=== PATIENT | female | born 1935 | race Caucasian/White ===

== ENCOUNTER 2020-10-31 13:37 | Inpatient (IN) ==
[2020-10-31] MEDS ORDERED: morphine 4 MG/ML VIAL IM ONE (13:45)
--- NOTE | 2020-10-31 13:50 | Emergency Department Note ---
Fall HPI General Chief Complaint: Fall Stated Complaint: fall Time Seen by Provider: 10/31/20 13:48 Source: EMS Mode of arrival: ambulatory Limitations: no limitations History of Present Illness HPI Narrative: Rosalind is an 89 year old female who arrives to the ER by EMS due to a reported fall yesterday with right hip pain. The grandson and son are in the room providing history as the patient suffers from dementia. She is alert and able to answer some questions but based on her baseline mentation is not able to provide reliable history. The grandson states that he discovered the patient down on the ground but conscious after a fall. He is not aware if she hit her head or lost consciousness. The patient is not on a blood thinner. She is complaining of right sided hip pain with guarding on exam. The grandson s tates that after her fall yesterday she was able to get up and ambulate with assistance but continues to complain of right hip pain today. They are concerned for a fracture. The patient is not in distress in the room and does not appear to be suffering from acute back pain. There are no reports of incontinence in the home and the patient does respond to stimuli when testing sensation of the lower extremities. No other modifying factors. Related Data Home Medications Medication Instructions Recorded Confirmed levothyroxine 10/31/20 Previous Rx's Medication Instructions Recorded levothyroxine 25 mcg tablet 25 mcg PO QDAY #90 tab 03/16/17 venlafaxine 75 mg tablet 75 mg PO QDAY #90 tab 10/27/19 Allergies Allergy/AdvReac Type Severity Reaction Status Date / Time Penicillins Allergy Unknown Unknown Unverified 10/31/20 14:11 Review of Systems ROS ROS Narrative: Narrative: All systems ED: reviewed and negative except as stated. 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, lower leg (Chronic) Memory loss (Chronic 12/19/12) Hernia, hiatal (Chronic) Hemorrhoids (Chronic) Heart murmur (Chronic) Hearing loss (Chronic) Gait abnormality (Chronic 12/19/12) Edema (Chronic) Diverticulosis (Chronic 12/04/99) Depression (Chronic) Dementia, 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 Follow CBC. Anxiety Daytime sleepiness Dementia Dementia, senile (12/19/12) Depression Severe depression. Hospital Admit 03/2008, [facility], for recurrent severe depressive disorder with ECT there. Some memory loss--head MRI 12/22/08. Follow up 04/16 and 03/16 Dr. Kamara, [facility]. Diverticulosis (12/04/99) Diverticulosis with colonoscopy performed 12/04/[address] Meade. Hemorrhoids, prominent anal papillae; otherwise normal. 10-year sequence. Edema Encounter for removal of sutures Gait abnormality (12/19/12) Hearing loss Heart murmur Very distant past history of heart murmur. Follow EKGs. Hemorrhoids 12/04/1999--Colonoscopy--Dr. Meade--Hemorrhoids, prominent anal papillae; otherwise normal. 10-year sequence Hepatitis A infection Distant past H/O Hepatitis-A in childhood, age 14. Hernia, hiatal /O hiatal hernia, asymptomatic. 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 Renner records) Total abdominal hysterectomy & bilateral salpingo-oophorectomy for excessive bleeding. Breast exam has been stable--follow mammograms. Weakness of extremity Knee Wellness examination Surgical History (System 10/31/20 @ 14:11 by Ivan Johnson) H/O colonoscopy (12/04/99) 12/04/1999 Dr. Meade--Hemorrhoids, prominent anal papillae; otherwise normal. 10-year sequence. H/O local excision of skin lesion Melanoma H/O: hysterectomy 1985 (Per Dr. Renner records) Total abdominal hysterectomy & bilateral salpingo-oophorectomy for excessive bleeding. Family History (System 10/31/20 @ 14:11 by Ivan Johnson) Mother Lung cancer Smoker Sister Dementia Brother Drug abuse Unknown Hypertension, essential Father Stroke Social History Smoking Status: Never smoker Exam Narrative Narrative: Narrative: General Limitations: no limitations General appearance: Present alert Head Head: Present atraumatic, normocephalic and normal inspection Eye Eye: Present normal appearance, PERRL and EOMI ENT ENT: Present normal exam, normal oropharynx and mucous membranes moist Neck Neck: Present normal inspection, full ROM, trachea midline and other (No midline tenderness.) Chest Chest: Present normal inspection and symmetric chest wall rise Respiratory Respiratory: Present normal lung sounds bilaterally Cardiovascular Cardiovascular: Present regular rate and normal rhythm Adbominal Abdominal: Present soft Extremities Extremities: Present normal inspection, full ROM and normal capillary refill Back Back: Present normal inspection Neurological Neurological: Present alert Psychiatric Psychiatric: Present normal affect and normal mood Skin Skin: Present warm (WNL), dry and normal color Other Other information: No signs of external trauma in the hips or lower extremities bilaterally. No evidence of shortening or fixed rotation. Patient does have pain when internally rotating the right lower extremity. No long bone deformities noted on exam. No swelling, bruising, erythema, or crepitus of the lower extremities bilaterally. Course Course Course Narrative: 1357: IM morphine for pain. Plain films of the hips have been ordered for evaluation of acute fracture. CT scan of the head and neck to evaluate for cervical spine injury or intracranial injury. 1445: IV placed. Review of the patient's plain films of her hips show evidence of a fracture through the right femoral neck. Patient is still being evaluated in CT but when she comes back we will inform the family and will talk to Dr. Waldrop with orthopedics for consultation. 1614: Patient was discussed with Dr. Avila who has accepted the patient with Dr. Waldrop on as consult. Pre op labs have been ordered. Patient to be kept NPO by midnight. Plan is to have the patient in the hospital and then surgical fixation of the hip performed tomorrow morning. Patient discussed with Dr. Bassett. EKG on my read shows sinus rhythm with rate of 53 beats per minute, no ST changes, no hyperacute T wave, left axis deviation with no evidence of WPW/Brugada/Heart Block. Vital Signs Vital signs: Vital Signs Temperature 98.1 F 10/31/20 13:38 Pulse Rate 56 L 10/31/20 13:38 Respiratory Rate 16 10/31/20 13:38 Blood Pressure 143/78 10/31/20 13:38 Pulse Oximetry (%) 93 10/31/20 13:38 Temperature 98.1 F 10/31/20 13:38 Pulse Rate 54 L 10/31/20 15:01 Respiratory Rate 16 10/31/20 13:38 Blood Pressure 131/59 10/31/20 15:01 Pulse Oximetry (%) 92 10/31/20 15:01 [facility] Narrative Medical decision making narrative: 85 year old female with history of ground level fall 24 hours ago presented to the ER with complaints of right hip pain. Plain films revealed a fracture of the right femoral neck with significant displacement. Patient given morphine for pain. IV placed for continued pain management. Patient admitted to the hospitalist service with orthopaedics on as consult. Plan for surgical fixation of the patients hip tomorrow morning. Patient discussed with Dr. Bassett. Assessment: Closed right hip fracture. Treatment: Patient given morphine in the ER for pain. Patient admitted to the hospitalist with ortho consult for surgical repair of hip tomorrow. Discharge Plan Patient/Caregiver Discharge Instructions Pt seen by RAIL CAR REPAIRMAN/PA only: Yes Clinical Impression: Closed fracture of right hip requiring operative repair Qualifiers: Encounter type: initial encounter Qualified Code(s): S72.001A - Fracture of unspecified part of neck of right femur, initial encounter for closed fracture Activity: increase activity as tolerated Patient Disposition: Xfer As Inpt (TS) Condition: Good Follow up with: Rochelle Leiva DO [Primary Care Provider] - Prescriptions: No Action levothyroxine 25 mcg tablet 25 mcg PO QDAY Qty: 90 RF: 3 venlafaxine 75 mg tablet 75 mg PO QDAY Qty: 90 RF: 0 levothyroxine RF: 0
--- NOTE | 2020-10-31 15:10 | XRay Report ---
CLINICAL INFORMATION: Hip Fx COMPARISON: None. FINDINGS: Heart is moderately enlarged. Mediastinum and pulmonary vessels are normal. There is minor bibasilar atelectasis. No infiltrates or effusions. IMPRESSION: Moderate cardiomegaly but no evidence of CHF. Minor bibasilar atelectasis Interpreted and Authenticated by: Robin Lua 10/31/20
--- NOTE | 2020-10-31 16:44 | Internal Med History&Physical ---
HPI History of Present Illness Patient information: Note initiated : 10/31/20 at 4:39 pm Service Date, if different from initiated Date: [] Patient: Aranza Ku a 85 y/o F admitted on for fall. Chief Complaint: [Fall with right hip fracture] History of present illness: Ms. Ku is a 85 year old F history of advanced dementia, hypothyroidism, presenting with fall with right hip fractures. There was no prior similar episode. The following HPI is limited by patient's current mental status. Patient has a weakness ground-level fall at home yesterday. Patient was being brought by family via EMS to our ER for further evaluation and treatment today. X-ray of the hip showing right hip fractures. Orthopedic surgeon was consulted who planted to be found ORIF on 11/01/20. 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) Primary localized osteoarthrosis, lower leg (Chronic) Memory loss (Chronic 12/19/12) Hernia, hiatal (Chronic) Hemorrhoids (Chronic) Heart murmur (Chronic) Hearing loss (Chronic) Gait abnormality (Chronic 12/19/12) Edema (Chronic) Diverticulosis (Chronic 12/04/99) Depression (Chronic) Dementia, 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 Follow CBC. Anxiety Daytime sleepiness Dementia Dementia, senile (12/19/12) Depression Severe depression. Hospital Admit 03/2008, [facility], for recurrent severe depressive disorder with ECT there. Some memory loss--head MRI 12/22/08. Follow up 04/16 and 03/16 Dr. Kamara, [facility]. Diverticulosis (12/04/99) Diverticulosis with colonoscopy performed 12/04/[address] Meade. Hemorrhoids, prominent anal papillae; otherwise normal. 10-year sequence. Edema Encounter for removal of sutures Gait abnormality (12/19/12) Hearing loss Heart murmur Very distant past history of heart murmur. Follow EKGs. Hemorrhoids 12/04/1999--Colonoscopy--Dr. Meade--Hemorrhoids, prominent anal papillae; otherwise normal. 10-year sequence Hepatitis A infection Distant past H/O Hepatitis-A in childhood, age 14. Hernia, hiatal /O hiatal hernia, asymptomatic. History of tobacco abuse Hypersomnia, organic (01/22/12) Hypothyroidism Incontinent of urine Medical non-compliance (01/22/12) she is given a written list of her meds today Medicare annual wellness visit, subsequent Melanoma Memory loss (12/19/12) Osteoporosis (07/02/12) Primary localized osteoarthrosis, lower leg Psychosocial stressors Severe episode of recurrent major depressive disorder, without psychotic features Vaginal bleeding (~1985) 1985 (Per Dr. Renner records) Total abdominal hysterectomy & bilateral salpingo-oophorectomy for excessive bleeding. Breast exam has been stable--follow mammograms. Weakness of extremity Knee Wellness examination Surgical History (System 10/31/20 @ 14:11 by Ivan Johnson) H/O colonoscopy (12/04/99) 12/04/1999 Dr. Meade--Hemorrhoids, prominent anal papillae; otherwise normal. 10-year sequence. H/O local excision of skin lesion Melanoma H/O: hysterectomy 1985 (Per Dr. Renner records) Total abdominal hysterectomy & bilateral salpingo-oophorectomy for excessive bleeding. Family History (System 10/31/20 @ 14:11 by Ivan Johnson) Mother Lung cancer Smoker Sister Dementia Brother Drug abuse Unknown Hypertension, essential Father Stroke Social History (System 10/31/20 @ 14:11 by Ivan Johnson) marital status: occupation: clinical nursing instructor other: Children-2 alcohol intake frequency: does not drink substance use type: does not use MEDS/ALLERGIES Home Medications and Allergies Home Medications Medication Instructions Recorded Confirmed Type levothyroxine 25 mcg tablet 25 mcg PO QDAY #90 tab 03/16/17 05/16/20 Rx venlafaxine 75 mg tablet 75 mg PO QDAY #90 tab 10/27/19 05/16/20 Rx levothyroxine 10/31/20 History Allergies Allergy/AdvReac Type Severity Reaction Status Date / Time Penicillins Allergy Unknown Unknown Unverified 10/31/20 14:11 EXAM Constitutional Vitals: Temp Pulse Resp BP Pulse Ox 36.7 C 54 L 16 138/66 100 10/31/20 13:38 10/31/20 16:32 10/31/20 13:38 10/31/20 16:32 10/31/20 16:32 General appearance: no acute distress; no cooperative Exam: nonverbal Head Head exam: Present atraumatic and normocephalic Eye Eye exam: Present EOMI and PERRL ENT ENT exam: Present mucous membranes moist, normal exam and normal external ear exam Additional comments: Nasal cannula in place Neck Neck exam: Present normal inspection; Absent lymphadenopathy, tenderness and thyromegaly Respiratory Respiratory exam: Absent accessory muscle use, respiratory distress and wheezes Cardiovascular Cardiovascular exam: Present normal rate and rhythm; Absent JVD GI/Abdominal GI/Abdominal exam: Present normal bowel sounds and soft; Absent organomegaly and tenderness Extremities Exam Extremities exam: Present full ROM, normal capillary refill, normal inspection and tenderness (right thigh) Neurological Exam Neurological exam: Present alert, CN II-XII intact and oriented X3; Absent motor sensory deficit Psychiatric Psychiatric exam: Present normal affect and normal mood; Absent anxious and depressed Skin Skin exam: Present dry and intact DATA Data Completed and Pending Labs: Labs from last 24 hours 10/31/20 10/31/20 10/31/20 16:14 16:14 16:14 WBC Pending RBC Pending Hgb Pending Hct Pending MCV Pending MCH Pending MCHC Pending RDW Pending Plt Count Pending MPV Pending Neut % (Auto) Pending PT Pending INR Pending APTT Pending Sodium Pending Potassium Pending Chloride Pending Carbon Dioxide Pending Anion Gap Pending BUN Pending Creatinine Pending GFR Calculation Pending Glucose Pending Calcium Pending Total Bilirubin Pending AST Pending ALT Pending Alkaline Phosphatase Pending Total Protein Pending Albumin Pending Globulin Pending Albumin/Globulin Ratio Pending A/P Assessment and plan (1) Hypothyroidism: Status: Acute (2) Closed fracture of right hip requiring operative repair: Status: Acute Qualifiers: Encounter type: initial encounter Qualified Code(s): S72.001A - Fracture of unspecified part of neck of right femur, initial encounter for closed fracture (3) Dementia: Status: Chronic Narrative A/P Narrative: Assessment and Plans: 1. Right hip closed fracture: Admit to inpatient med surg Orthopedic surgeon consulted for planned ORIF on 11/01/20 NPO after midnight in preparation of the surgery Bed rest PT OT after surgery 2. Hypothyroidism: Continue thyroid replacement therapy 3. Advanced dementia: Continue to monitor GI ppx: not currently indicated DVT ppx: SCDs Code status: Full Prognosis: Stable Disposition: inpatient med surg Time Spent With Patient Time: Total time spent is greater than 50% in coordination of care (as documented) at patient's floor/unit and/or counseling patient: Total time spent with greater than 50% in coordination of care (as documented) at patient's floor/unit and/or counseling patient:: 15 - 24 minutes
[2020-10-31] MEDS ORDERED: ZOLPIDEM 5 MG TABLET PO PRN (17:09)
[2020-10-31] MEDS ORDERED: ACETAMINOPHEN 325 MG TABLET PO PRN (17:09)
[2020-10-31] MEDS ORDERED: ONDANSETRON 4 MG/2 ML VIAL IV PRN (17:09)
[2020-10-31] MEDS ORDERED: morphine 4 MG/ML VIAL IV PRN (17:09)
[2020-10-31 17:12] LABS: Basophils # (Auto) 0.04 K/mcL (0.00-0.20); Basophils % (Auto) 0.5 % (0.0-2.0); Eosinophils # (Auto) 0.12 K/mcL (0.00-0.70); Eosinophils % (Auto) 1.4 % (0.0-7.0); Hematocrit 39.3 % (36.0-48.0); Lymphocytes # (Auto) 1.18 K/mcL (1.50-4.80); Mean Cell Volume 98.3 fL (80.0-100.0); Mean Corpuscular HGB Conc 33.1 g/dL (31.0-36.0); Mean Platelet Volume 11.5 fL (7.4-10.4); Monocytes # (Auto) 0.62 K/mcL (0.10-0.90); Monocytes % (Auto) 7.3 % (1.0-12.0); Neutrophils % (Auto) 76.8 % (38.0-78.0); Platelet Count 128 K/mcL (140-440); Red Cell Distribution Width 12.7 % (11.5-14.5); WBC 8.5 K/mcL (4.5-11.0)
[2020-10-31 17:15] LABS: Partial Thromboplastin Time 29.2 sec (20.0-37.0)
[2020-10-31 17:16] LABS: INR 1.1 (0.9-1.1); Prothrombin Time 14.7 sec (11.9-14.5)
[2020-10-31 17:25] LABS: ALT/SGPT 11 U/L (<40); AST/SGOT 21 U/L (<32); Albumin 3.5 gm/dL (3.2-5.2); Albumin/Globulin Ratio 1.3 (1.0-2.3); Alkaline Phosphatase 58 U/L (39-117); Bilirubin,Total 0.7 mg/dL (0.1-1.0); Blood Urea Nitrogen 19 mg/dL (8-23); Calcium 8.9 mg/dL (8.6-10.4); Carbon Dioxide 28 mmol/L (22-30); Chloride 106 mmol/L (96-108); Globulin 2.8 gm/dL (2.2-3.7); Glomerular Filtration Rate 59; Glucose 113 mg/dL (70-105)
--- NOTE | 2020-10-31 17:30 | EKG ---
[facility] Test Date: 2020-10-31 Pat Name: Aranza Ku Department: ED Room: Gender: Female Sign Maker: sb : 1935 Requested By: Raul Saenz Order Number: [id number] Reading MD: Ronan Eastman M.D. Measurements Intervals [place] Rate: 53 P: 69 FL: 169 QRS: -31 QRSD: 107 T: 13 QT: 453 QTc: 426 Interpretive Statements Sinus rhythm Consider left atrial enlargement Left axis deviation, IRBBB NO PRIOR TRACING FOR COMPARISON ABNORMAL ECG Consider RVH or posterior infarct Electronically Signed On 10-31-2020 17:30:24 PDT by Ronan Eastman M.D. /store/[email or web address]/[id number]
[2020-10-31] MEDS: DOCUSATE SODIUM 100 MG CAPSULE PO SCH (21:20)
[2020-10-31] MEDS: SENNOSIDES 1 TABLET PO SCH (21:20)
[2020-10-31] MEDS: 0.9 % SODIUM CHLORIDE 1,000 ML IV SCH (23:40)
[2020-10-31] MEDS: 0.9 % SODIUM CHLORIDE 10 ML SYRINGE IV SCH (23:40)
--- NOTE | 2020-11-01 03:31 | XRay Report ---
CLINICAL INFORMATION: Fall w/Hip Pain COMPARISON: None. FINDINGS: Transcervical fracture of the right femoral neck shows 16 mm superior displacement of the femoral neck with respect to the femoral head. Mild overlying soft tissue swelling noted. Mild degeneration seen in both SI and hip joints. IMPRESSION: Displaced transcervical fracture of the right femoral neck Interpreted and Authenticated by: Robin Lua 11/01/20
[2020-11-01] MEDS: 0.9 % SODIUM CHLORIDE 10 ML SYRINGE IV SCH ×3 (05:02→20:58)
[2020-11-01 06:59] LABS: Basophils # (Auto) 0.02 K/mcL (0.00-0.20); Basophils % (Auto) 0.3 % (0.0-2.0); Eosinophils # (Auto) 0.14 K/mcL (0.00-0.70); Eosinophils % (Auto) 1.8 % (0.0-7.0); Hematocrit 38.5 % (36.0-48.0); Hemoglobin 12.5 g/dL (12.0-15.0); Lymphocytes % (Auto) 11.3 % (15.0-49.0); Mean Cell Volume 98.5 fL (80.0-100.0); Mean Corpuscular HGB Conc 32.5 g/dL (31.0-36.0); Mean Platelet Volume 11.3 fL (7.4-10.4); Monocytes # (Auto) 0.59 K/mcL (0.10-0.90); Monocytes % (Auto) 7.4 % (1.0-12.0); Neutrophils % (Auto) 79.2 % (38.0-78.0); Platelet Count 123 K/mcL (140-440); RBC 3.91 M/mcL (4.00-5.20); Red Cell Distribution Width 12.9 % (11.5-14.5)
[2020-11-01] MEDS: DOCUSATE SODIUM 100 MG CAPSULE PO SCH ×2 (06:59→20:58)
[2020-11-01 07:23] LABS: Blood Urea Nitrogen 19 mg/dL (8-23); Calcium 8.9 mg/dL (8.6-10.4); Carbon Dioxide 26 mmol/L (22-30); Chloride 109 mmol/L (96-108); Glomerular Filtration Rate 68; Glucose 102 mg/dL (70-105)
[2020-11-01] MEDS: LEVOTHYROXINE 25 MCG TABLET PO SCH (08:02)
[2020-11-01] MEDS: LORazepam 0.5 MG TABLET PO SCH (08:03)
--- NOTE | 2020-11-01 08:32 | Consultation ---
DATE OF CONSULTATION: 11/01/2020 DATE OF CONSULTATION: 11/01/2020 REASON FOR CONSULTATION: Right hip fracture. HISTORY OF PRESENT ILLNESS: The patient is an 85-year-old demented female without providing history. History comes from review of notes as well as the ER provider, but reportedly had a ground level fall. Her grandson found her on the ground, but consciousness after fall, unaware if she hit her head or any loss of consciousness or the etiology of the fall itself. This was on 10/30. Upon trying to ambulate, she continued to complain of pain and subsequently brought to the Emergency Department for further evaluation and treatment where she was found to have a right hip fracture. She has been admitted overnight by the hospitalist service as well. PAST MEDICAL HISTORY: Hypothyroidism, advanced dementia, depression, history of melanoma, anxiety, osteoporosis. PAST SURGICAL HISTORY: History of colonoscopy; local excision of skin lesion, which revealed melanoma; hysterectomy. ALLERGIES: PENICILLIN. MEDICATIONS: Levothyroxine and venlafaxine. REVIEW OF SYSTEMS: Unobtainable from the patient herself, but per chart review is negative. PHYSICAL EXAMINATION: General: The patient is sleeping. She communicates, but mumbles, not able to answer questions this morning. Vital Signs: She is afebrile with temperature 99.4, heart rate in the 50s. Blood pressures 120s-140s/50s-60s and satting in the 90s on room air. Extremities: Examination of her right lower extremity reveals the skin is intact. Does not appear significantly external rotated or internally rotated, but does a bit short. Did not move hip secondary to known fracture. There is no joint effusion about the knee. There is no deformity about the foot, the ankle, or the leg itself. The foot is warm and well perfused. IMAGING: She has plain radiographs demonstrating a right displaced femoral neck fracture. LABS: She has CBC from this morning with a white count of 8, hemoglobin 12.5, hematocrit 38.5 and platelet count 123. She has a chemistry with a creatinine of 0.9, glucose 113. Her INR is 1.1. ASSESSMENT AND PLAN: This is an 85-year-old demented female with a right displaced femoral neck fracture. Could not discuss the case with her, but will discuss with her grandson when he comes to the hospital. Discussing for recommendation for operative fixation, which will improve her pain control, also allow her to be ambulatory, but it is a surgery with risks to include infection, bleeding, dislocations, leg length discrepancies. It is also the recovery that goes along with the rehab that allow her to be more comfortable in the sitting position as well as mobilize as she was ambulatory prior to this per the report, but the plan will be for a right cemented hip hemiarthroplasty later on today. Did discuss with son, Destin who understands and agrees with proceeding with surgery of right hip ella arthroplasty. DLW: Job ID: [id number] Doc ID: [id number] Cody Waldrop MD MTDKarla
[2020-11-01] MEDS: 0.9 % SODIUM CHLORIDE 1,000 ML IV SCH (08:39)
--- NOTE | 2020-11-01 09:07 | Internal Med Progress Note ---
SUBJECTIVE Subjective Patient information: Note initiated : 11/01/20 at 9:06 am Service Date, if different from initiated Date: [] Patient: Aranza Ku 85 y/o F admitted on 10/31/20 for fall. Chief Complaint: [right hip fracture] 11/01/20: There was no major overnight events. Patient denies any right hip pain. Denies shortness of breath. Denies nausea or vomiting. Constitutional Vitals: Vital Signs Temp Pulse Resp BP Pulse Ox 37.1 C 53 L 12 129/71 92 11/01/20 03:32 11/01/20 03:32 11/01/20 03:32 11/01/20 03:32 11/01/20 03:32 Period Temp Pulse Resp BP Sys/Coronel Pulse Ox Last 24 Hr 36.7 C-37.4 C 51-65 12-16 97-143/55-82 90-100 Intake and Output 10/31/20 11/01/20 11/01/20 21:59 05:59 13:59 Intake Total 0 Output Total 3 Balance -3 Weight 51.483 kg Intake & Output: Intake & Output 10/31/20 11/01/20 11/01/20 21:59 05:59 13:59 Intake Total 0 Output Total 3 Balance -3 Weight 51.483 kg Intake: Oral 0 Output: # of times incontinent of urine 3 Other: Meal Dinner Percent of Meal Consumed Refused Urine Color Pale Dark Yellow Urine Odor Strong General appearance: cooperative and no acute distress Head Head exam: Present atraumatic and normocephalic Eye Eye exam: Present EOMI and PERRL ENT ENT exam: Present mucous membranes moist, normal exam and normal external ear exam Neck Neck exam: Present normal inspection; Absent lymphadenopathy, tenderness and thyromegaly Respiratory Respiratory exam: Absent accessory muscle use, respiratory distress and wheezes Cardiovascular Cardiovascular exam: Present normal rate and rhythm; Absent JVD GI/Abdominal GI/Abdominal exam: Present normal bowel sounds and soft; Absent organomegaly and tenderness Extremities Exam Extremities exam: Present full ROM, normal capillary refill, normal inspection and tenderness Neurological Exam Neurological exam: Present alert, CN II-XII intact and oriented X3; Absent motor sensory deficit Psychiatric Psychiatric exam: Present normal affect and normal mood; Absent anxious and dep ressed Skin Skin exam: Present dry and intact OBJ DATA Labs CBC & Chem 7: 11/01/20 06:00 11/01/20 06:00 Labs: Abnormal Lab Results 11/01/20 11/01/20 10/31/20 06:00 06:00 16:14 RBC 3.91 L Plt Count 123 L MPV 11.3 H Neut % (Auto) 79.2 H Lymph % (Auto) 11.3 L Lymph # (Auto) 0.90 L PT Chloride 109 H Glucose 113 H 10/31/20 10/31/20 16:14 16:14 RBC Plt Count 128 L MPV 11.5 H Neut % (Auto) Lymph % (Auto) 14.0 L Lymph # (Auto) 1.18 L PT 14.7 H Chloride Glucose Meds: Medications Acetaminophen (Acetaminophen 325 Mg Tablet) 650 mg PO Q6HP PRN; Protocol PRN Reason: Per Pain Protocol/Fever > 101 Docusate Sodium (Docusate Sodium 100 Mg Capsule) 100 mg PO BID [facility] Last Admin: 11/01/20 06:59 Dose: Not Given Documented by: Sodium Chloride (Sodium Chloride 0.9%) 1,000 mls @ 100 mls/hr IV .Q10H [facility] Last Admin: 11/01/20 08:39 Dose: Not Given Documented by: Levothyroxine Sodium (Levothyroxine 25 Mcg Tablet) 50 mcg PO QDAY [facility] Last Admin: 11/01/20 08:02 Dose: 50 mcg Documented by: Lorazepam (Lorazepam 0.5 Mg Tablet) 0.5 mg PO QDAY [facility] Last Admin: 11/01/20 08:03 Dose: 0.5 mg Documented by: Morphine Sulfate (Morphine 4 Mg/Ml Vial) 4 mg IV Q4HP PRN; Protocol PRN Reason: Per Pain Protocol Ondansetron HCl (Ondansetron 4 Mg/2 Ml Vial) 4 mg IV Q6HP PRN PRN Reason: Nausea And Vomiting Senna (Sennosides 1 Tablet) 2 tab PO HS [facility] Last Admin: 10/31/20 21:20 Dose: Not Given Documented by: Sodium Chloride (0.9 % Sodium Chloride 10 Ml Syringe) 10 ml IV Q8 [facility] Last Admin: 11/01/20 05:02 Dose: Not Given Documented by: Zolpidem Tartrate (Zolpidem 5 Mg Tablet) 5 mg PO HSP PRN PRN Reason: Insomnia A/P Assessment and plan (1) Hypothyroidism: Status: Acute (2) Closed fracture of right hip requiring operative repair: Status: Acute Qualifiers: Encounter type: initial encounter Qualified Code(s): S72.001A - Fracture of unspecified part of neck of right femur, initial encounter for closed fracture (3) Dementia: Status: Chronic Narrative A/P Narrative: Assessment and Plans: 1. Right hip closed fracture: Stays in inpatient med surg Orthopedic surgeon consulted for planned ORIF today NPO after midnight in preparation of the surgery Bed rest PT OT after surgery 2. Hypothyroidism: Continue thyroid replacement therapy 3. Advanced dementia: Continue to monitor GI ppx: not currently indicated DVT ppx: SCDs Code status: Full Prognosis: Stable Disposition: inpatient med surg Time Spent With Patient Time: Total time spent is greater than 50% in coordination of care (as documented) at patient's floor/unit and/or counseling patient: QUALITY VTE Deep Vein Thrombosis/Pulmonary Embolism Present on Admission: No
[2020-11-01] MEDS ORDERED: MAGNESIUM SULFATE 2 GM/50 ML BAG IV ONE (12:42)
[2020-11-01] MEDS ORDERED: KETAMINE 50 MG/ML ML ONE (12:42)
[2020-11-01] MEDS ORDERED: ONDANSETRON 4 MG/2 ML VIAL ONE (12:42)
[2020-11-01] MEDS ORDERED: LIDOCAINE HCL/PF 100 MG/5 ML SYRINGE IV ONE (12:42)
[2020-11-01] MEDS ORDERED: SUCCINYLCHOLINE 20 MG/ML ML IV ONE (12:42)
[2020-11-01] MEDS ORDERED: DEXAMETHASONE 10 MG/ML VIAL ONE (12:42)
[2020-11-01] MEDS ORDERED: PROPOFOL 200 MG/20 ML VIAL IV ONE (12:42)
[2020-11-01] MEDS ORDERED: fentaNYL 100 MCG/2 ML VIAL IV ONE (12:42)
[2020-11-01] MEDS ORDERED: ROPIVACAINE HCL/PF 30 ML VIAL IJ ONE (12:42)
[2020-11-01] MEDS ORDERED: GLYCOPYRROLATE 0.2 MG/ML VIAL IV ONE (12:42)
[2020-11-01] MEDS ORDERED: TRANEXAMIC ACID 1,000 MG/10 ML VIAL IV ONE ×2 (12:42→14:08)
[2020-11-01] MEDS ORDERED: ceFAZolin 2 GM in DEXTROSE 5% IN WATER 50 ML IV SCH (12:45)
[2020-11-01] MEDS ORDERED: TRANEXAMIC ACID 1,000 MG/10 ML VIAL IV SCH (13:43)
[2020-11-01] MEDS ORDERED: BENZOCAINE/MENTHOL 1 LOZENGE PO PRN (14:08)
[2020-11-01] MEDS ORDERED: oxyCODONE HCL 5 MG TABLET PO PRN (14:08)
--- NOTE | 2020-11-01 14:08 | Brief Operative Note ---
Brief Operative Note Date of procedure: 11/01/20 Pre-op diagnosis: right femoral neck fracture Post-op diagnosis: same Procedure: left hip hemiarthroplasty Grafts/Implants: Yes Anesthesia: GETA Findings: displaced femoral head fracture Complications: none Surgeon: Cody Waldrop Wheel Cleaner: Fredo Engle Estimated blood loss (cc): 200 Tourniquet Time (Minutes): 0 Specimens Removed/Pathology: none sent Condition: stable Disposition: PACU
[2020-11-01] MEDS ORDERED: METHOCARBAMOL 750 MG TABLET PO PRN (14:11)
[2020-11-01] MEDS ORDERED: ONDANSETRON 4 MG/2 ML VIAL IV PRN (14:25)
[2020-11-01] MEDS ORDERED: LACTATED RINGERS 250 ML IV PRN (14:25)
[2020-11-01] MEDS ORDERED: MEPERIDINE 25 MG/ML VIAL IV PRN (14:25)
[2020-11-01] MEDS ORDERED: ACETAMINOPHEN 750 MG/75 ML BAG IV ONE (14:25)
[2020-11-01] MEDS ORDERED: diphenhydrAMINE 50 MG/ML VIAL IV PRN (14:25)
[2020-11-01] MEDS ORDERED: NALOXONE HCL 0.4 MG/ML VIAL IV PRN (14:25)
[2020-11-01] MEDS ORDERED: fentaNYL 100 MCG/2 ML VIAL IV PRN (14:25)
[2020-11-01] MEDS ORDERED: IPRATROPIUM/ALBUTEROL 3 ML AMPUL.NEB NEB PRN (14:25)
[2020-11-01] MEDS ORDERED: PROMETHAZINE 25 MG/ML VIAL IV PRN (14:25)
[2020-11-01] MEDS ORDERED: LACTATED RINGERS 1,000 ML IV SCH (14:30)
--- NOTE | 2020-11-01 15:06 | Operative Note ---
DATE OF OPERATION: 11/01/2020 PREOPERATIVE DIAGNOSIS: Right displaced femoral neck fracture. POSTOPERATIVE DIAGNOSIS: Right displaced femoral neck fracture. OPERATION PERFORMED: Right hip hemiarthroplasty, cemented. SURGEON: Cody Waldrop M.D. ELECTRICAL SYSTEMS DESIGN ENGINEER: Fredo Engle PA-C. The PA's assistance was required for the safe and efficient completion of the entire case. This provider's expertise and technical skill were required throughout the case. The PA assisted with preoperative coordination, intraoperative retraction, wound closure, dressing and splint application, as well as postoperative documentation and care coordination. ANESTHESIA: General. INTRAVENOUS FLUIDS: 1500 mL lactated Ringer's. ESTIMATED BLOOD LOSS: 200 mL. ANTIBIOTICS: 2 grams Ancef. TOURNIQUET TIME: Not applicable. IMPLANTS: Synthes basic [place] cemented stem size 2 with a size 45 head ball with a -3 insert. PATHOLOGY/LAB: None; however, the bone of the femoral head appeared a pathologic. INDICATIONS FOR PROCEDURE: The patient is an 85-year-old female with dementia who had a ground-level fall resulting in injury to her right hip with a displaced femoral neck fracture. I discussed this with her son as well as treatment options with recommendation for operative intervention given that it will improve the pain as well as mobilization. I discussed the risks associated with surgery and nonoperative would be an option, too. However, these typically do not heal. He understands and has elected to proceed with surgery. DESCRIPTION OF PROCEDURE: Patient was met in the preoperative holding area where site was verified and marked with the patient's input. She was taken back to the operating room where she underwent successful endotracheal anesthesia. She was placed in lateral decubitus position with the right side up with padded posts of the pubic symphysis as well as over the sacrum. The right hip was cleaned with chlorhexidine wipes and then prepped and draped in the usual sterile fashion with ChloraPrep. Surgical timeout was performed to verify patient's identity, correct procedure being performed, and correct extremity being operated on. Everybody was in agreement. I created approximately a 10 to 12 cm incision over the posterior aspect of the middle third of the greater trochanter, curving posteriorly. Skin was sharply incised down in line with the femur. Skin was sharply incised. Hemostasis was obtained with electrocautery device down to the tensor fascia muscle as well as IT band. This was incised over the greater trochanter and then exposing the trochanter bursa, which was excised. A self-retaining retractor was placed. The external rotators were elevated off of the posterior aspect of the femoral neck and the piriformis was tagged. This was elevated to expose the capsule. A capsulotomy was created in line with the femoral neck and exposed the fracture itself. These were tagged as well. The capsule was elevated down to the level of lesser trochanter. The femoral neck cut was made at this time with approximately 13 to 14 mm of the greater trochanter. It was removed with the oscillating saw. The head was removed. All bony fragments were removed. The wound was copiously irrigated. I did put TXA in the wound as well and she had IV, but she was a bit oozy to start with. The femoral neck was then exposed, utilizing a box hinge and lock attacher, canal finder, lateralizer and a broach. It sized up to a size 2 broach with good fit overall. However, I wanted to cement given her older age and dementia. Once this was complete, I placed a standard head along with head ball which was a size 45. The joint was reduced, restoring the length as well as stability with hip flexion at 90 degrees and internal rotation greater than 60 degrees without dislocation or subluxation. The implants were then removed. The canal was prepped. We placed a cement restrictor distally along with a brush in the canal and pulse lavaged it and placed a dry sucker into the canal while cement was being mixed. The stem was then cemented in place and the head ball was impacted in place as well. I did place a lap within the acetabulum to keep all cement from entering the acetabulum and dried the trunnion prior to placing the head. The joint was then reduced with good overall stability. The capsule was closed with a #2 Ethibond for four stitches. The wound was then copiously irrigated again. We did also irrigate with IrriSept throughout. The tensor fasciae latae was closed at the level of the musculotendinous junction with #1 Vicryl and then Stratafix distal to this and run up. A #1 Vicryl was then run over the tensor muscle proximally. The subcutaneous tissue and fat layer was closed with 2-0 Vicryl, subcutaneous with 3-0 Vicryl, and the skin closed with hallie. The leg was then cleaned and dried. We placed a silver dressing along with a hip abduction pillow. The patient awoke from anesthesia and was transferred to PACU in stable condition. POSTOPERATIVE PLAN: The patient will be admitted back to floor for postoperative recovery and likely need some kind of rehab placement. DLW:vidal Job ID: [id number] Doc ID: [id number] Cody Waldrop MD [facility]
--- NOTE | 2020-11-01 15:48 | XRay Report ---
CLINICAL INFORMATION: s/p right hip ella arthroplasty COMPARISON: None. FINDINGS: Right hip prostheses anatomically aligned. No osseous abnormalities. Both SI and left hip joints show minimal degenerative change. Soft tissue swelling and surgical site appreciated IMPRESSION: Right hip prostheses is anatomically aligned. Interpreted and Authenticated by: Robin Lua 11/01/20
[2020-11-01] MEDS: LACTATED RINGERS 1,000 ML IV SCH (16:23)
--- NOTE | 2020-11-01 17:36 | Cat Scan Report ---
CLINICAL INFORMATION: Trauma-fall COMPARISON: CT 03/20/2008 TECHNIQUE: 2.5 mm helical slices were obtained in the skull base to vertex. Following reconstruction, axial reformatted images were reviewed at bone and parenchymal windows. The exam was performed using radiation dose optimization techniques including, but not limited to, automated exposure control, adjustment of the mA and/or kV according to patient size and use of iterative reconstruction technique. FINDINGS: The ventricles, sulci, fissures, and cisterns are are enlarged compatible with moderate age-related atrophy. This has progressed considerably since the remote study 13 years ago. Patchy chronic ischemic changes in the cerebral white matter expected for age. There is no evidence of hemorrhage, mass effect, or edema. Bone windows show no osseous abnormality. IMPRESSION: Moderate age-related atrophy and patchy chronic ischemic changes in the deep cerebral white matter progressing considerably since the remote CT 13 years ago. No intracerebral hemorrhage or other acute posttraumatic change Moderate mucosal thickening both sphenoid sinuses compatible with sphenoid sinusitis-new Interpreted and Authenticated by: Robin Lua 11/01/20
--- NOTE | 2020-11-01 18:10 | Cat Scan Report ---
CLINICAL INFORMATION: Trauma-fall COMPARISON: None. TECHNIQUE: 0.625 mm helical slices were obtained from the skull base through the superior T2 end plate, and following reconstruction, 2.5 mm sagittal, coronal and axial reformations were then processed. The exam was reviewed at bone and soft tissue windows. The exam was performed using radiation dose optimization techniques including, but not limited to, automated exposure control, adjustment of the mA and/or kV according to patient size and use of iterative reconstruction technique. FINDINGS: Sagittal reformatted images show the spine is anatomically aligned. There is no fracture or other osseous abnormality. The cervical cord is normal in contour and caliber without hemorrhage or other abnormality. Soft tissues show a 9 mm irregular low-attenuation lesion mid right thyroid lobe and a 3 cm low-attenuation lesion inferior right thyroid lobe. Lung apices are unremarkable. The C2-3, C3-4, C4-5 and C5-6 disc levels are normal. At C6-7 and C7-T1 there are minimal broad disc protrusions. Central canal lateral recess and IV foramen are normal width at each level IMPRESSION: 1. No fracture or other posttraumatic change 2. Minor degeneration. 3. 9 mm irregular lesion mid right thyroid lobe and 3 cm low-attenuation mass inferior right thyroid lobe. Both lesions are much more likely benign than malignant. Consider thyroid ultrasound for further characterization Interpreted and Authenticated by: Robin Lua 11/01/20
[2020-11-01] MEDS: ACETAMINOPHEN 500 MG TABLET PO SCH (20:58)
[2020-11-01] MEDS: SENNOSIDES 1 TABLET PO SCH (20:58)
[2020-11-01] MEDS: ceFAZolin 1 GM VIAL IV SCH (21:53)
[2020-11-02] MEDS: ACETAMINOPHEN 1,000 MG/100 ML BAG IV PRN ×2 (00:49→13:53)
[2020-11-02] MEDS: ceFAZolin 1 GM VIAL IV SCH (04:37)
[2020-11-02] MEDS: ACETAMINOPHEN 500 MG TABLET PO SCH ×3 (04:38→21:54)
[2020-11-02] MEDS: LACTATED RINGERS 1,000 ML IV SCH ×2 (04:38→15:07)
[2020-11-02] MEDS: 0.9 % SODIUM CHLORIDE 10 ML SYRINGE IV SCH ×3 (04:39→20:06)
[2020-11-02 07:05] LABS: Hematocrit 34.8 % (36.0-48.0); Hemoglobin 11.1 g/dL (12.0-15.0)
--- NOTE | 2020-11-02 07:44 | Orthopedic Progress Note ---
SUBJECTIVE Subjective Patient information: Note initiated : 11/02/20 at 7:40 am Service Date, if different from initiated Date: [] Patient: Aranza Ku 85 y/o F admitted on 10/31/20 for fall. She is postop day #1 status post a right hemihip arthroplasty. Patient does have baseline dementia and is unable to hold conversation however she is alert and interactive this morning. In no apparent distress. Chief Complaint: [Right hip pain following fall] Constitutional Vitals: Vital Signs Temp Pulse Resp BP Pulse Ox 97.5 F 51 L 12 134/66 95 11/02/20 03:26 11/02/20 03:26 11/02/20 03:26 11/02/20 03:26 11/02/20 03:26 Period Temp Pulse Resp BP Sys/Coronel Pulse Ox Last 24 Hr 97 F-97.7 F 51-84 12- 106-164/43-89 93-100 Intake and Output 11/01/20 11/02/20 11/02/20 21:59 05:59 13:59 Intake Total 1515 1119 Output Total 200 2 Balance 1315 1117 Weight 119 lb 12.8 oz Intake & Output: Intake & Output 11/01/20 11/02/20 11/02/20 21:59 05:59 13:59 Intake Total 1515 1119 Output Total 200 2 Balance 1315 1117 Weight 119 lb 12.8 oz Intake: IV 75 1019 Lactated Ringers 1,000 ml @ 75 919 mls/hr IV .[id number] [facility] Rx#: [id number] Oral 190 100 IV - Manual Only 1250 Output: # of times incontinent of urine 2 Estimated Blood Loss 200 Other: Meal Dinner Percent of Meal Consumed 100% Feeding Ability Total Assistance Urine Color Pale Dark Yellow Urine Odor Strong General appearance: no acute distress Extremities Exam Extremities exam: Present normal capillary refill, Foot pink and warm and neurovascular intact Additional comments: Silver dressing over the right hip demonstrates some shadow drainage noted proximally. OBJ DATA Labs CBC & Chem 7: 11/02/20 05:09 11/01/20 06:00 Labs: Abnormal Lab Results 11/02/20 11/01/20 11/01/20 05:09 06:00 06:00 RBC 3.91 L Hgb 11.1 L Hct 34.8 L Plt Count 123 L MPV 11.3 H Neut % (Auto) 79.2 H Lymph % (Auto) 11.3 L Lymph # (Auto) 0.90 L PT Chloride 109 H Glucose 10/31/20 10/31/20 10/31/20 16:14 16:14 16:14 RBC Hgb Hct Plt Count 128 L MPV 11.5 H Neut % (Auto) Lymph % (Auto) 14.0 L Lymph # (Auto) 1.18 L PT 14.7 H Chloride Glucose 113 H Meds: Medications Acetaminophen (Acetaminophen 500 Mg Tablet) 1,000 mg PO Q8H [facility]; Protocol Last Admin: 11/02/20 04:38 Dose: Not Given Documented by: Apixaban (Apixaban 5 Mg Tablet) 2.5 mg PO BID [facility] Docusate Sodium (Docusate Sodium 100 Mg Capsule) 100 mg PO BID [facility] Last Admin: 11/01/20 20:58 Dose: Not Given Documented by: Lactated Ringer's (Lactated Ringers) 1,000 mls @ 75 mls/hr IV .[id number] [facility] Last Admin: 11/02/20 04:38 Dose: 75 mls/hr Documented by: Acetaminophen (Ofirmev) 1,000 mg in 100 mls @ 200 mls/hr IV Q8HP PRN; Protocol PRN Reason: PAIN/FEVER > 101 Last Infusion: 11/02/20 01:25 Dose: Infused Documented by: Levothyroxine Sodium (Levothyroxine 25 Mcg Tablet) 50 mcg PO QDAY [facility] Last Admin: 11/01/20 08:02 Dose: 50 mcg Documented by: Lorazepam (Lorazepam 0.5 Mg Tablet) 0.5 mg PO QDAY [facility] Last Admin: 11/01/20 08:03 Dose: 0.5 mg Documented by: Methocarbamol (Methocarbamol 750 Mg Tablet) 500 mg PO Q6HP PRN PRN Reason: Muscle Spasm Morphine Sulfate (Morphine 4 Mg/Ml Vial) 4 mg IV Q4HP PRN; Protocol PRN Reason: Per Pain Protocol Ondansetron HCl (Ondansetron 4 Mg/2 Ml Vial) 4 mg IV Q6HP PRN PRN Reason: Nausea And Vomiting Oxycodone HCl (Oxycodone Hcl 5 Mg Tablet) 0 mg PO Q4HP PRN; Protocol PRN Reason: Per Pain Protocol Senna (Sennosides 1 Tablet) 2 tab PO HS [facility] Last Admin: 11/01/20 20:58 Dose: Not Given Documented by: Sodium Chloride (0.9 % Sodium Chloride 10 Ml Syringe) 10 ml IV Q8 [facility] Last Admin: 11/02/20 04:39 Dose: Not Given Documented by: Throat Lozenges (Benzocaine/Menthol 1 Lozenge) 1 lozenge PO PRN PRN PRN Reason: Sore Throat Zolpidem Tartrate (Zolpidem 5 Mg Tablet) 5 mg PO HSP PRN PRN Reason: Insomnia A/P Assessment and plan (1) Closed fracture of right hip requiring operative repair: Status: Acute Comment: Patient is an 85-year-old female postop day #1 status post a right hemihip arthroplasty. --may change dressing prior to discharge--replace silver dressing. --PT/OT: Weightbearing as tolerated with walker. --Continue pain medications. --Continue diet. --prophy: ana Trinhs. --dispo: likely SNF. Qualifiers: Encounter type: initial encounter Qualified Code(s): S72.001A - Fracture of unspecified part of neck of right femur, initial encounter for closed fracture Time Spent With Patient Time: Total time spent is greater than 50% in coordination of care (as documented) at patient's floor/unit and/or counseling patient:
[2020-11-02] MEDS: LEVOTHYROXINE 25 MCG TABLET PO SCH (08:27)
[2020-11-02] MEDS: APIXABAN 5 MG TABLET PO SCH ×2 (08:27→20:25)
[2020-11-02] MEDS: LORazepam 0.5 MG TABLET PO SCH (08:28)
[2020-11-02] MEDS: DOCUSATE SODIUM 100 MG CAPSULE PO SCH ×2 (08:28→20:25)
--- NOTE | 2020-11-02 12:06 | Internal Med Progress Note ---
SUBJECTIVE Subjective Patient information: Note initiated : 11/02/20 at 12:03 pm Service Date, if different from initiated Date: [] Patient: Aranza Ku a 85 y/o F admitted on 10/31/20 for fall. Chief Complaint: [] Interval history: : Ms. Ku is a 85 year old F history of advanced dementia, hypothyroidism, presenting with fall with right hip fractures. There was no prior similar episode. The following HPI is limited by patient's current mental status. Patient has a weakness ground-level fall at home yesterday. Patient was being brought by family via EMS to our ER for further evaluation and treatment today. X-ray of the hip showing right hip fractures. Orthopedic surgeon was consulted who planted to be found ORIF on 11/01/20. 11/01/20: There was no major overnight events. Patient denies any right hip pain. Denies shortness of breath. Denies nausea or vomiting. 11/02-patient postop day 1. Left hip hemiarthroplasty. No overnight event. Intermittently confused however ongoing therapies and nutrition support. No significant postop pain or labral malady. Will likely discharge to SNF in 24 hours. No other concerns expressed by nursing staff Constitutional Vitals: Vital Signs Temp Pulse Resp BP Pulse Ox 96.9 F L 51 L 12 125/67 97 11/02/20 08:00 11/02/20 08:00 11/02/20 08:00 11/02/20 08:00 11/02/20 08:00 Period Temp Pulse Resp BP Sys/Coronel Pulse Ox Last 24 Hr 96.9 F-97.7 F 51-84 12-21 106-164/43-89 93-100 Intake and Output 11/01/20 11/02/20 11/02/20 21:59 05:59 13:59 Intake Total 1515 1119 Output Total 200 2 Balance 1315 1117 Weight 54.34 kg intermittently confused Nonlabored breathing No significant swelling or bleeding around the surgery site. Intake & Output: Intake & Output 11/01/20 11/02/20 11/02/20 21:59 05:59 13:59 Intake Total 1515 1119 Output Total 200 2 Balance 1315 1117 Weight 54.34 kg Intake: IV 75 1019 Lactated Ringers 1,000 ml @ 75 919 mls/hr IV .[id number] [facility] Rx#: [id number] Oral 190 100 IV - Manual Only 1250 Output: # of times incontinent of urine 2 Estimated Blood Loss 200 Other: Meal Dinner Percent of Meal Consumed 100% Feeding Ability Total Assistance Urine Color Pale Dark Yellow Urine Odor Strong OBJ DATA Labs CBC & Chem 7: 11/02/20 05:09 11/01/20 06:00 Labs: Abnormal Lab Results 11/02/20 11/01/20 11/01/20 05:09 06:00 06:00 RBC 3.91 L Hgb 11.1 L Hct 34.8 L Plt Count 123 L MPV 11.3 H Neut % (Auto) 79.2 H Lymph % (Auto) 11.3 L Lymph # (Auto) 0.90 L PT Chloride 109 H Glucose 10/31/20 10/31/20 10/31/20 16:14 16:14 16:14 RBC Hgb Hct Plt Count 128 L MPV 11.5 H Neut % (Auto) Lymph % (Auto) 14.0 L Lymph # (Auto) 1.18 L PT 14.7 H Chloride Glucose 113 H Meds: Medications Acetaminophen (Acetaminophen 500 Mg Tablet) 1,000 mg PO Q8H [facility]; Protocol Last Admin: 11/02/20 04:38 Dose: Not Given Documented by: Apixaban (Apixaban 5 Mg Tablet) 2.5 mg PO BID [facility] Last Admin: 11/02/20 08:27 Dose: 2.5 mg Documented by: Docusate Sodium (Docusate Sodium 100 Mg Capsule) 100 mg PO BID [facility] Last Admin: 11/02/20 08:28 Dose: 100 mg Documented by: Lactated Ringer's (Lactated Ringers) 1,000 mls @ 75 mls/hr IV .[id number] [facility] Last Admin: 11/02/20 04:38 Dose: 75 mls/hr Documented by: Acetaminophen (Ofirmev) 1,000 mg in 100 mls @ 200 mls/hr IV Q8HP PRN; Protocol PRN Reason: PAIN/FEVER > 101 Last Infusion: 11/02/20 01:25 Dose: Infused Documented by: Levothyroxine Sodium (Levothyroxine 25 Mcg Tablet) 50 mcg PO QDAY [facility] Last Admin: 11/02/20 08:27 Dose: 50 mcg Documented by: Lorazepam (Lorazepam 0.5 Mg Tablet) 0.5 mg PO QDAY [facility] Last Admin: 11/02/20 08:28 Dose: 0.5 mg Documented by: Methocarbamol (Methocarbamol 750 Mg Tablet) 500 mg PO Q6HP PRN PRN Reason: Muscle Spasm Morphine Sulfate (Morphine 4 Mg/Ml Vial) 4 mg IV Q4HP PRN; Protocol PRN Reason: Per Pain Protocol Ondansetron HCl (Ondansetron 4 Mg/2 Ml Vial) 4 mg IV Q6HP PRN PRN Reason: Nausea And Vomiting Oxycodone HCl (Oxycodone Hcl 5 Mg Tablet) 0 mg PO Q4HP PRN; Protocol PRN Reason: Per Pain Protocol Senna (Sennosides 1 Tablet) 2 tab PO HS [facility] Last Admin: 11/01/20 20:58 Dose: Not Given Documented by: Sodium Chloride (0.9 % Sodium Chloride 10 Ml Syringe) 10 ml IV Q8 [facility] Last Admin: 11/02/20 04:39 Dose: Not Given Documented by: Throat Lozenges (Benzocaine/Menthol 1 Lozenge) 1 lozenge PO PRN PRN PRN Reason: Sore Throat Zolpidem Tartrate (Zolpidem 5 Mg Tablet) 5 mg PO HSP PRN PRN Reason: Insomnia A/P Narrative A/P Narrative: * Right hip closed fracture-postop day 1. Managed per orthopedics. 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 Continue close monitoring for delirium. Avoid sedative hypnotics Plan * Daily therapy/nutrition support * Postop pain management per orthopedics * Postop DVT prophylaxis per orthopedics * Pre-existing medical condition management as above * Delirium watch * SNF transfer coordination per case management Time Spent With Patient Time: Total time spent is greater than 50% in coordination of care (as documented) at patient's floor/unit and/or counseling patient: QUALITY VTE Deep Vein Thrombosis/Pulmonary Embolism Present on Admission: No
[2020-11-02] MEDS: SENNOSIDES 1 TABLET PO SCH (20:25)
[2020-11-03 04:48] LABS: Hemoglobin 11.1 g/dL (12.0-15.0)
[2020-11-03 05:09] LABS: Hematocrit 33.8 % (36.0-48.0)
[2020-11-03] MEDS: LACTATED RINGERS 1,000 ML IV SCH ×2 (05:25→20:15)
[2020-11-03] MEDS: 0.9 % SODIUM CHLORIDE 10 ML SYRINGE IV SCH ×3 (05:27→21:16)
[2020-11-03] MEDS: ACETAMINOPHEN 500 MG TABLET PO SCH ×3 (05:27→21:17)
--- NOTE | 2020-11-03 06:31 | Orthopedic Progress Note ---
SUBJECTIVE Subjective Patient information: Note initiated : 11/03/20 at 6:28 am Service Date, if different from initiated Date: [] Patient: Aranza Ku 85 y/o F admitted on 10/31/20 for fall. Chief Complaint: [No acute issues overnight.] Constitutional Vitals: Vital Signs Temp Pulse Resp BP Pulse Ox 97.2 F 63 16 135/64 93 11/03/20 03:10 11/03/20 03:10 11/03/20 03:10 11/03/20 03:10 11/03/20 03:10 Period Temp Pulse Resp BP Sys/Coronel Pulse Ox Last 24 Hr 96.9 F-98.5 F 51-69 12-20 114-135/50-69 93-97 Intake and Output 11/02/20 11/03/20 11/03/20 21:59 05:59 13:59 Intake Total 1340 960 Output Total 3 1 Balance 1337 959 Weight 121 lb 6.4 oz Intake & Output: Intake & Output 11/02/20 11/03/20 11/03/20 21:59 05:59 13:59 Intake Total 1340 960 Output Total 3 1 Balance 1337 959 Weight 121 lb 6.4 oz Intake: IV 1100 Lactated Ringers 1,000 ml @ 75 1000 mls/hr IV .[id number] [facility] Rx#: [id number] Oral 240 960 Output: # of times incontinent of urine 3 1 Other: Meal Lunch Dinner Percent of Meal Consumed 100% Feeding Ability Independent Urine Color Dark Yellow Urine Odor Normal Additional findings Additional findings: General: sleeping Right hip: silver dressing is intact with some strikethrough but not saturated. foot is warm well perfused. OBJ DATA Labs CBC & Chem 7: 11/03/20 04:11 11/01/20 06:00 Labs: Abnormal Lab Results 11/03/20 11/02/20 11/01/20 04:11 05:09 06:00 RBC Hgb 11.1 L 11.1 L Hct 33.8 L 34.8 L Plt Count MPV Neut % (Auto) Lymph % (Auto) Lymph # (Auto) PT Chloride 109 H Glucose 11/01/20 10/31/20 10/31/20 06:00 16:14 16:14 RBC 3.91 L Hgb Hct Plt Count 123 L MPV 11.3 H Neut % (Auto) 79.2 H Lymph % (Auto) 11.3 L Lymph # (Auto) 0.90 L PT 14.7 H Chloride Glucose 113 H 10/31/20 16:14 RBC Hgb Hct Plt Count 128 L MPV 11.5 H Neut % (Auto) Lymph % (Auto) 14.0 L Lymph # (Auto) 1.18 L PT Chloride Glucose Meds: Medications Acetaminophen (Acetaminophen 500 Mg Tablet) 1,000 mg PO Q8H [facility]; Protocol Last Admin: 11/03/20 05:27 Dose: Not Given Documented by: Apixaban (Apixaban 5 Mg Tablet) 2.5 mg PO BID [facility] Last Admin: 11/02/20 20:25 Dose: 2.5 mg Documented by: Docusate Sodium (Docusate Sodium 100 Mg Capsule) 100 mg PO BID [facility] Last Admin: 11/02/20 20:25 Dose: 100 mg Documented by: Lactated Ringer's (Lactated Ringers) 1,000 mls @ 75 mls/hr IV .[id number] [facility] Last Admin: 11/03/20 05:25 Dose: Not Given Documented by: Acetaminophen (Ofirmev) 1,000 mg in 100 mls @ 200 mls/hr IV Q8HP PRN; Protocol PRN Reason: PAIN/FEVER > 101 Last Infusion: 11/02/20 16:15 Dose: Infused Documented by: Levothyroxine Sodium (Levothyroxine 25 Mcg Tablet) 50 mcg PO QDAY [facility] Last Admin: 11/02/20 08:27 Dose: 50 mcg Documented by: Lorazepam (Lorazepam 0.5 Mg Tablet) 0.5 mg PO QDAY [facility] Last Admin: 11/02/20 08:28 Dose: 0.5 mg Documented by: Methocarbamol (Methocarbamol 750 Mg Tablet) 500 mg PO Q6HP PRN PRN Reason: Muscle Spasm Morphine Sulfate (Morphine 4 Mg/Ml Vial) 4 mg IV Q4HP PRN; Protocol PRN Reason: Per Pain Protocol Ondansetron HCl (Ondansetron 4 Mg/2 Ml Vial) 4 mg IV Q6HP PRN PRN Reason: Nausea And Vomiting Oxycodone HCl (Oxycodone Hcl 5 Mg Tablet) 0 mg PO Q4HP PRN; Protocol PRN Reason: Per Pain Protocol Senna (Sennosides 1 Tablet) 2 tab PO HS [facility] Last Admin: 11/02/20 20:25 Dose: 2 tab Documented by: Sodium Chloride (0.9 % Sodium Chloride 10 Ml Syringe) 10 ml IV Q8 [facility] Last Admin: 11/03/20 05:27 Dose: Not Given Documented by: Throat Lozenges (Benzocaine/Menthol 1 Lozenge) 1 lozenge PO PRN PRN PRN Reason: Sore Throat Zolpidem Tartrate (Zolpidem 5 Mg Tablet) 5 mg PO HSP PRN PRN Reason: Insomnia A/P Assessment and plan (1) Closed fracture of right hip requiring operative repair: Status: Acute Comment: Patient is an 85-year-old female postop day #2 status post a right hemihip arthroplasty. --weight bearing as tolerated with posterior hip precautions x6 weeks. --Continue pain medications. --Continue diet. --prophy: [facility], scds, IS --dispo: OK to d/c from ortho perspective, [facility] x35 days total, posterior hip precautions, ok to shower with silver dressing in place (can change prior to d/c), f/u with Eva Engle or myself in 11-13 days for post op care. Qualifiers: Encounter type: initial encounter Qualified Code(s): S72.001A - Fracture of unspecified part of neck of right femur, initial encounter for closed fracture Time Spent With Patient Time: Total time spent is greater than 50% in coordination of care (as documented) at patient's floor/unit and/or counseling patient:
[2020-11-03] MEDS ORDERED: POLYETHYLENE GLYCOL 3350 17 GM PACKET PO PRN (09:39)
[2020-11-03] MEDS: LEVOTHYROXINE 25 MCG TABLET PO SCH (09:57)
[2020-11-03] MEDS: DOCUSATE SODIUM 100 MG CAPSULE PO SCH ×2 (09:57→21:16)
[2020-11-03] MEDS: APIXABAN 5 MG TABLET PO SCH ×2 (09:57→21:15)
[2020-11-03] MEDS: LORazepam 0.5 MG TABLET PO SCH (09:57)
--- NOTE | 2020-11-03 15:27 | Internal Med Progress Note ---
SUBJECTIVE Subjective Patient information: Note initiated : 11/03/20 at 3:25 pm Service Date, if different from initiated Date: [] Patient: Aranza Ku a 85 y/o F admitted on 10/31/20 for fall. Chief Complaint: [] Interval history: : Ms. Ku is a 85 year old F history of advanced dementia, hypothyroidism, presenting with fall with right hip fractures. There was no prior similar episode. The following HPI is limited by patient's current mental status. Patient has a weakness ground-level fall at home yesterday. Patient was being brought by family via EMS to our ER for further evaluation and treatment today. X-ray of the hip showing right hip fractures. Orthopedic surgeon was consulted who planted to be found ORIF on 11/01/20. 11/01/20: There was no major overnight events. Patient denies any right hip pain. Denies shortness of breath. Denies nausea or vomiting. 11/02-patient postop day 1. Left hip hemiarthroplasty. No overnight event. Intermittently confused however ongoing therapies and nutrition support. No significant postop pain or labral malady. Will likely discharge to SNF in 24 hours. No other concerns expressed by nursing staff 11/03-patient doing a lot better. No significant post operative pain. Alert oriented, no anxiety. No significant operative site oozing or bleeding. Stable labs and hemodynamics. Await transfer to SNF, case management coordinating Constitutional Vitals: Vital Signs Temp Pulse Resp BP Pulse Ox 98.0 F 69 16 134/65 94 11/03/20 12:00 11/03/20 12:00 11/03/20 12:00 11/03/20 12:00 11/03/20 12:00 Period Temp Pulse Resp BP Sys/Coronel Pulse Ox Last 24 Hr 97.2 F-98.5 F 58-69 16-20 114-135/50-67 93-97 Intake and Output 11/03/20 11/03/20 11/03/20 05:59 13:59 21:59 Intake Total 960 Output Total 1 2 1 Balance 959 -2 -1 Weight 55.066 kg nonlabored breathing No anxiety No lymphedema Intake & Output: Intake & Output 11/03/20 11/03/20 11/03/20 05:59 13:59 21:59 Intake Total 960 Output Total 1 2 1 Balance 959 -2 -1 Weight 55.066 kg Intake: Oral 960 Output: # of times incontinent of urine 1 2 1 Other: Meal Dinner Breakfast Percent of Meal Consumed 100% 50% Feeding Ability Independent Urine Color Dark Yellow Urine Odor Normal OBJ DATA Labs CBC & Chem 7: 11/03/20 04:11 11/01/20 06:00 Labs: Abnormal Lab Results 11/03/20 11/02/20 11/01/20 04:11 05:09 06:00 RBC Hgb 11.1 L 11.1 L Hct 33.8 L 34.8 L Plt Count MPV Neut % (Auto) Lymph % (Auto) Lymph # (Auto) PT Chloride 109 H Glucose 11/01/20 10/31/20 10/31/20 06:00 16:14 16:14 RBC 3.91 L Hgb Hct Plt Count 123 L MPV 11.3 H Neut % (Auto) 79.2 H Lymph % (Auto) 11.3 L Lymph # (Auto) 0.90 L PT 14.7 H Chloride Glucose 113 H 10/31/20 16:14 RBC Hgb Hct Plt Count 128 L MPV 11.5 H Neut % (Auto) Lymph % (Auto) 14.0 L Lymph # (Auto) 1.18 L PT Chloride Glucose Meds: Medications Acetaminophen (Acetaminophen 500 Mg Tablet) 1,000 mg PO Q8H [facility]; Protocol Last Admin: 11/03/20 15:02 Dose: Not Given Documented by: Apixaban (Apixaban 5 Mg Tablet) 2.5 mg PO BID [facility] Last Admin: 11/03/20 09:57 Dose: 2.5 mg Documented by: Docusate Sodium (Docusate Sodium 100 Mg Capsule) 100 mg PO BID [facility] Last Admin: 11/03/20 09:57 Dose: 100 mg Documented by: Lactated Ringer's (Lactated Ringers) 1,000 mls @ 75 mls/hr IV .[id number] [facility] Last Admin: 11/03/20 05:25 Dose: Not Given Documented by: Acetaminophen (Ofirmev) 1,000 mg in 100 mls @ 200 mls/hr IV Q8HP PRN; Protocol PRN Reason: PAIN/FEVER > 101 Last Infusion: 11/02/20 16:15 Dose: Infused Documented by: Levothyroxine Sodium (Levothyroxine 25 Mcg Tablet) 50 mcg PO QDAY [facility] Last Admin: 11/03/20 09:57 Dose: 50 mcg Documented by: Lorazepam (Lorazepam 0.5 Mg Tablet) 0.5 mg PO QDAY [facility] Last Admin: 11/03/20 09:57 Dose: 0.5 mg Documented by: Methocarbamol (Methocarbamol 750 Mg Tablet) 500 mg PO Q6HP PRN PRN Reason: Muscle Spasm Morphine Sulfate (Morphine 4 Mg/Ml Vial) 4 mg IV Q4HP PRN; Protocol PRN Reason: Per Pain Protocol Ondansetron HCl (Ondansetron 4 Mg/2 Ml Vial) 4 mg IV Q6HP PRN PRN Reason: Nausea And Vomiting Oxycodone HCl (Oxycodone Hcl 5 Mg Tablet) 0 mg PO Q4HP PRN; Protocol PRN Reason: Per Pain Protocol Polyethylene Glycol (Polyethylene Glycol 3350 17 Gm Packet) 17 gm PO DAILY PRN PRN Reason: Constipation Last Admin: 11/03/20 10:47 Dose: 17 gm Documented by: Senna (Sennosides 1 Tablet) 2 tab PO HS [facility] Last Admin: 11/02/20 20:25 Dose: 2 tab Documented by: Sodium Chloride (0.9 % Sodium Chloride 10 Ml Syringe) 10 ml IV Q8 [facility] Last Admin: 11/03/20 14:25 Dose: Not Given Documented by: Throat Lozenges (Benzocaine/Menthol 1 Lozenge) 1 lozenge PO PRN PRN PRN Reason: Sore Throat Zolpidem Tartrate (Zolpidem 5 Mg Tablet) 5 mg PO HSP PRN PRN Reason: Insomnia A/P Narrative A/P Narrative: * Right hip closed fracture-postop day 2. Continue postop care per orthopedics. 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 At baseline Plan * Continue Daily therapy/nutrition support * Await SNF transfer * Postop pain/ DVT prophylaxis per orthopedics * Pre-existing medical condition management as above Time Spent With Patient Time: Total time spent is greater than 50% in coordination of care (as documented) at patient's floor/unit and/or counseling patient: QUALITY VTE Deep Vein Thrombosis/Pulmonary Embolism Present on Admission: No
[2020-11-03] MEDS: SENNOSIDES 1 TABLET PO SCH (21:15)
[2020-11-04] MEDS: 0.9 % SODIUM CHLORIDE 10 ML SYRINGE IV SCH (05:17)
[2020-11-04] MEDS: ACETAMINOPHEN 500 MG TABLET PO SCH (05:29)
[2020-11-04 08:01] LABS: Hematocrit 31.1 % (36.0-48.0); Hemoglobin 10.5 g/dL (12.0-15.0)
--- NOTE | 2020-11-04 10:10 | Discharge Summary ---
Discharge Provider Provider Patient information: Note initiated : 11/04/20 at 10:08 am Service Date, if different from initiated Date: [] Patient: Aranza Ku a 85 y/o F admitted on 10/31/20 for fall. Discharge diagnosis * Right hip closed fracture-postop day 3. Continue postop care per orthopedics. Follow-up orthopedics as outpatient. 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 At baseline Brief hospital course Ms. Ku is a 85 year old F history of advanced dementia, hypothyroidism, presenting with fall with right hip fractures. There was no prior similar episode. The following HPI is limited by patient's current mental status. Patient has a weakness ground-level fall at home yesterday. Patient was being brought by family via EMS to our ER for further evaluation and treatment today. X-ray of the hip showing right hip fractures. Orthopedic surgeon was consulted who planted to be found ORIF on 11/01/20. 11/01/20: There was no major overnight events. Patient denies any right hip pain. Denies shortness of breath. Denies nausea or vomiting. 11/02-patient postop day 1. Left hip hemiarthroplasty. No overnight event. Intermittently confused however ongoing therapies and nutrition support. No significant postop pain or labral malady. Will likely discharge to SNF in 24 hours. No other concerns expressed by nursing staff 11/03-patient doing a lot better. No significant post operative pain. Alert oriented, no anxiety. No significant operative site oozing or bleeding. Stable labs and hemodynamics. Await transfer to SNF, case management coordinating 11/04-patient doing well. Mentation at baseline. Discharging home with home health. Family agrees with care plan. Will follow up with primary care physician/orthopedic as outpatient. Ongoing physical therapy Date of admission: 10/31/20 17:00 Discharge date: 11/04/20 Primary care physician: Rochelle Leiva DO Consults: 10/31/20 Consult to Physician [CONS] Stat Comment: Consulting Provider: Cody Waldrop Reason For Exam: Physician to Consult 10/31/20 16:22 Consult to Physician [CONS] Stat Comment: Consulting Provider: Ori Avila Reason For Exam: Physician to Consult Discharge Meds Discharge Medications Home Medications levothyroxine 50 mcg PO QDAY 10/31/20 [History Confirmed 10/31/20 Last Taken 10/30/20] lorazepam 0.5 mg PO QDAY 10/31/20 [History Confirmed 10/31/20 Last Taken 10/30/20] acetaminophen 1,000 mg PO Q8H #90 tab 11/03/20 [Rx Last Taken Unknown] apixaban [Eliquis] 2.5 mg PO BID #66 tab 11/03/20 [Rx Last Taken Unknown] docusate sodium [DOK] 100 mg PO BID #60 cap 11/03/20 [Rx Last Taken Unknown] methocarbamol 500 mg PO Q6HP PRN #20 tab 11/03/20 [Rx Last Taken Unknown] oxycodone 5 - 10 mg PO Q4HP PRN #40 tab 11/03/20 [Rx Last Taken Unknown] COURSE Hospital Course Hospital course: . Discharge diagnosis: . Time Spent with Patient Time attestation: Total time spent providing and/or coordinating discharge services: EXAM Constitutional Vitals: Temp Pulse Resp BP Pulse Ox 98.6 F 60 14 141/72 95 11/04/20 07:27 11/04/20 07:27 11/04/20 07:27 11/04/20 07:27 11/04/20 07:27 Discharge Data Data Completed and Pending Labs on day of discharge: Labs from last 24 hours 11/04/20 05:18 Hgb 10.5 L Hct 31.1 L Discharge Plan Patient/Caregiver Discharge Instructions Activity: increase activity as tolerated Diet: Regular Diet Activity Restrictions/Additional Instructions: Follow-up orthopedics as outpatient Return to ER if worsening pain at surgery site/swelling Prescriptions: New acetaminophen 500 mg Tablet 1,000 mg PO Q8H Qty: 90 RF: 0 docusate sodium [DOK] 100 mg Capsule 100 mg PO BID Qty: 60 RF: 0 Eliquis 5 mg Tablet 2.5 mg PO BID Qty: 66 RF: 0 methocarbamol 750 mg Tablet 500 mg PO Q6HP PRN (Reason: Muscle Spasm) Qty: 20 RF: 0 oxycodone 5 mg Tablet 5 - 10 mg PO Q4HP PRN (Reason: Per Pain Protocol) Qty: 40 RF: 0 No Action lorazepam 0.5 mg Tablet 0.5 mg PO QDAY RF: 0 levothyroxine 25 mcg tablet 50 mcg PO QDAY RF: 0 Follow Up Plan Follow up with: Fredo Engle PA-C [Physician Field Service Analyst] - 11/11/20 9:00 am (11-13 days for post op f/u.) Rochelle Leiva DO [Primary Care Provider] - Patient Disposition: Home Health Service Prognosis: Good Rehab Potential: Fair I certify that the patient requires SNF services: No Overall status at discharge: patient is progressing back to baseline Discharge Orders: Discharge Order (Routine); Ordered 11/04/20 Ordered By: Edvin CARREON VTE Deep Vein Thrombosis/Pulmonary Embolism Present on Admission: No
[2020-11-04] MEDS: DOCUSATE SODIUM 100 MG CAPSULE PO SCH (10:17)
[2020-11-04] MEDS: LORazepam 0.5 MG TABLET PO SCH (10:17)
[2020-11-04] MEDS: LEVOTHYROXINE 25 MCG TABLET PO SCH (10:17)
[2020-11-04] MEDS: APIXABAN 5 MG TABLET PO SCH (10:17)
== END 2020-11-04 14:23 | disposition home health service (06) | DRG 522 ==
LOC: ED 13:37 → MERGE 13:37 → MEDSUR 17:00
PROVIDERS: ADMIT Internal Medicine; ATTEND Internal Medicine